=== PATIENT | female | born 1935 | race Caucasian/White ===

== ENCOUNTER 2023-12-11 21:03 | Emergency (ER) | payer OTHER, MEDICARE ==
[2023-12-11 21:37] VITALS: BMI 40.3
[2023-12-11] MEDS: ACETAMINOPHEN 1000 MG/100 ML BAG IVPB ONE (21:48)
[2023-12-12 02:16] VITALS: BP 151/61; PULSE 59; RESP 15; TEMP 98
== END 2023-12-12 03:35 | disposition home or self-care (01) ==
LOC: JER 21:03
DX: S00.83XA Contusion of other part of head, initial encounter (principal); W06.XXXA Fall from bed, initial encounter
CPT/HCPCS: 70450-TC; 70486-TC; 71045-TC-FY; 72125-TC; 72170-TC-FY; 82962; 93005; 93010; 99285-25